=== PATIENT | male | born 1995 | race Caucasian/White ===

== ENCOUNTER 2018-11-24 03:15 | Emergency (ER) | payer OTHER ==
[~2018-11-24] VITALS: Ht 182.9 cm; Wt 95.3 kg
--- OUTSIDE RECORDS SUMMARY | 2018-11-24 03:18 | XMS REPORT | Clinical Summary ---
Author Author [facility] Organization [facility] Address Unknown Phone Unavailable Care Team Providers Care Immigration Consultant Name Role Phone Self, Referral PCP Unavailable Johanny Parker RN Unavailable Unavailable Megha Senabobo Rosado DO Unavailable Source Comments Some departments are not documenting in the electronic medical record. If you do not see the information that you expected, contact Release of Information in the Health Information Management department at [phone] for further assistance in locating additional records.[facility] Allergies Not on File Medications Not on file Active Problems Not on file Social History Date Tobacco Use Types Packs/Day Years Used Never Assessed Sex Assigned at Date Recorded Not on file Industry Job Start Date Occupation Not on file Not on file Not on file Travel End Travel History Travel Start No recent travel history available. Last Filed Vital Signs Time Taken Vital Sign Reading 02/17/2013 4:00 AM CDT Blood Pressure 110/52 02/17/2013 4:00 AM CDT Pulse 57 02/17/2013 1:02 AM CDT Temperature 36.9 C (98.4 F) - Respiratory Rate - 02/17/2013 4:00 AM CDT Oxygen Saturation 98% - Inhaled Oxygen - Concentration 02/17/2013 1:02 AM CDT Weight 74.8 kg (165 lb) 02/17/2013 1:02 AM CDT Height 180.3 cm (5' 11") 02/17/2013 1:02 AM CDT Body Mass Index 23.01 Plan of Treatment Health Maintenance Due Date Last Done Comments PHYSICAL (COMPREHENSIVE) 2003 EXAM HIV SCREENING 2011 DTAP/TDAP VACCINES ( - 2014 Tdap) INFLUENZA VACCINE 04/30/2018 HPV VACCINES Aged Out No longer eligible based on patient's age to complete this topic MENINGOCOCCAL VACCINE Aged Out No longer eligible based (ACWY,Menactra) on patient's age to complete this topic Results Not on filefrom Last 3 Months Advance Directives Patient has advance care planning documents on file. For more information, please contact: [facility] [address] [place] [address]
--- OUTSIDE RECORDS SUMMARY | 2018-11-24 03:18 | XMS REPORT | Clinical Summary ---
Author Author [facility] Organization [facility] Address Unknown Phone Unavailable Care Team Providers Care House Mover Name Role Phone Hector Sheth MD PCP Allergies No Known Allergies Current Medications Prescription Sig. Disp. Refills Start End Date Status Date HYDROcodone-acetaminophen Take 1 tablet by mouth 20 tablet 0 05/05/20 Active (NORCO) 5-325 mg per every 6 (six) hours as 17 tablet needed for pain. Active Problems Not on file Social History Tobacco Use Types Packs/Day Years Used Date Light Tobacco Smoker Smokeless Tobacco: Never Used Alcohol Use Drinks/Week oz/Week Comments Yes Sex Assigned at Date Recorded Not on file Last Filed Vital Signs Vital Sign Reading Time Taken Blood Pressure 125/85 05/05/2017 1:55 AM CDT Pulse 101 05/05/2017 1:55 AM CDT Temperature 37.1 C (98.8 F) 05/05/2017 1:55 AM CDT Respiratory Rate 16 05/05/2017 1:55 AM CDT Oxygen Saturation 99% 05/05/2017 1:55 AM CDT Inhaled Oxygen - - Concentration Weight 86.2 kg (190 lb) 05/05/2017 1:55 AM CDT Height - - Body Mass Index - - Plan of Treatment Health Maintenance Due Date Last Done Comments Td # 1996 Tobacco Cessation 1996 Counseling # HPV Vaccine (1 - Male 2011 3-dose series) Pneumococcal Immunization 2015 19-64 Low/Medium Risk# (1 of 1 - PPSV23) Influenza Vaccine (#1) 2018 MCV4 Vaccine Aged Out No longer eligible based on patient's age to complete this topic Results Not on filefrom Last 3 Months
[2018-11-24] MEDS ORDERED: NS IV 1000 ML 1,000 ML IV SCH (03:22)
[2018-11-24] MEDS ORDERED: ONDANSETRON 4 MG/2 ML (SDV) Z0FRAN IVP ONE (03:30)
[2018-11-24] MEDS ORDERED: KETOROLAC 30 MG/ML VIAL IVP ONE (03:30)
[2018-11-24 03:31] LABS: BASOPHILS % (AUTO) 0 % (0-10); EOSINOPHILS # (AUTO) 0.3 10^3/uL (0.0-0.3); EOSINOPHILS % (AUTO) 2 % (0-10); HEMATOCRIT 42 % (40-54); HEMOGLOBIN 14.6 G/DL (13.3-17.7); LYMPHOCYTES # (AUTO) 2.5 X 10^3 (1.0-4.0); LYMPHOCYTES % (AUTO) 16 % (12-44); MEAN CORPUSCULAR HEMOGLOBIN 30 PG (25-34); MEAN CORPUSCULAR HGB CONC 35 G/DL (32-36); MEAN CORPUSCULAR VOLUME 85 FL (80-99); MEAN PLATELET VOLUME 10.3 FL (7.4-10.4); MONOCYTES # (AUTO) 1.3 X 10^3 (0.0-1.0); MONOCYTES % (AUTO) 8 % (0-12); NEUTROPHILS % (AUTO) 74 % (42-75); PLATELET COUNT 273 10^3/uL (130-400); RED CELL DISTRIBUTION WIDTH 12.8 % (10.0-14.5); WHITE BLOOD COUNT 16.1 10^3/uL (4.3-11.0)
--- NOTE | 2018-11-24 03:32 | ED EENT ---
History of Present Illness General Chief Complaint: Oral/Throat Problems Stated Complaint: FACE SWELLING Source: patient Exam Limitations: no limitations History of Present Illness Date Seen by Provider: Nov 24, 2018 Time Seen by Provider: 03:15 Initial Comments Patient presents to ER by private conveyance with chief complaint that he woke up about 2030 minutes prior to arrival and cannot open his mouth was having quite a bit of pain and swelling under his left jaw. 2 days ago he took a course of azithromycin for chlamydia. He has no known allergies no history of anaphylaxis and no new soaps detergents or foods. He's never had this happen before. He denies having any recent dental cavities or dental pain. No pain in his ears or discharge. No discharge in the mouth or blood. No trauma to the face. He denies any fever or chills but he does have a little nausea. He has not taken anything for it. Allergies and Home Medications Allergies Coded Allergies: No Known Drug Allergies (Unverified , 11/24/18) Home Medications Amoxicillin/Potassium Clav 1 Each Tablet, 1 EACH PO BID Prescribed by: AVE HERNANDEZ on 11/24/18457 Ondansetron 4 Mg Tab.rapdis, 4 MG PO Q6H PRN for NAUSEA/VOMITING Prescribed by: AVE HERNANDEZ on 11/24/18457 Tramadol HCl 50 Mg Tablet, 50 MG PO Q6H PRN for BREAKTHROUGH PAIN Prescribed by: AVE HERNANDEZ on 11/24/188 Patient Home Medication List Home Medication List Reviewed: Yes Review of Systems Review of Systems Constitutional: No chills, No diaphoresis, No fever Eyes: Denies Blindness, Denies Blurred Vision Ears: Denies Dizziness, Denies Pain Nose: denies clots, denies congestion Mouth: see HPI; denies clots, denies loose teeth; pain, swelling; denies bloody discharge, denies clear discharge, denies purulent discharge, denies serosanguinous discharge Throat: denies pain, denies swelling, denies neck stiffness, denies hoarse Respiratory: No cough, No short of breath, No wheezing, No other Cardiovascular: No chest pain, No edema Past Ymjiomf-Zzbkjr-Xfdhga Hx Patient Social History Alcohol Use: Occasionally Uses Recreational Drug Use: No Smoking Status: Never a Smoker Type Used: Electronic/Vapor Recent Foreign Travel: No Contact w/Someone Who Travel: No Physical Exam Vital Signs Vital Signs - First Documented 11/24/18 03:19 Temp 98.1 Pulse 134 Resp 20 B/P (MAP) 171/92 (118) Pulse Ox 95 O2 Delivery Room Air Height, Weight, BMI Height: '" Weight: lbs. oz. kg; BMI Method: General Appearance: WD/WN, no apparent distress Eyes: bilateral eye normal inspection, bilateral eye PERRL, bilateral eye EOMI Ears: bilateral ear auricle normal, bilateral ear canal normal, bilateral ear TM normal Nose: normal inspection, discharge Mouth/Throat: No dental tenderness; other (tongue is normal size and it's difficult to see the interior is not because it hurts when he opens his jaw. He does have a swollen lymph node palpable, tender proximally 3 cm on the left mandibular angle. No fluctuance or pointing to suggest an abscess) Neck: full range of motion, supple Cardiovascular: normal peripheral pulses, regular rate, rhythm, no edema, tachycardia Respiratory: lungs clear, normal breath sounds, no respiratory distress, no accessory muscle use; No stridor, No wheezing Gastrointestinal: non tender, soft Neurologic/Psychiatric: alert, normal mood/affect, oriented x 3 Skin: normal color, warm/dry Progress/Results/Core Measures Results/Orders Lab Results Laboratory Tests Test 11/24/18 03:25 11/24/18 03:39 Range/Units White Blood Count 16.1 H 4.3-11.0 10^3/uL Red Blood Count 4.91 4.35-5.85 10^6/uL Hemoglobin 14.6 13.3-17.7 G/DL Hematocrit 42 40-54 % Mean Corpuscular Volume 85 80-99 FL Mean Corpuscular Hemoglobin 30 25-34 PG Mean Corpuscular Hemoglobin Concent 35 32-36 G/DL Red Cell Distribution Width 12.8 10.0-14.5 % Platelet Count 273 130-400 10^3/uL Mean Platelet Volume 10.3 7.4-10.4 FL Neutrophils (%) (Auto) 74 42-75 % Lymphocytes (%) (Auto) 16 12-44 % Monocytes (%) (Auto) 8 0-12 % Eosinophils (%) (Auto) 2 0-10 % Basophils (%) (Auto) 0 0-10 % Neutrophils # (Auto) 12.0 H 1.8-7.8 X 10^3 Lymphocytes # (Auto) 2.5 1.0-4.0 X 10^3 Monocytes # (Auto) 1.3 H 0.0-1.0 X 10^3 Eosinophils # (Auto) 0.3 0.0-0.3 10^3/uL Basophils # (Auto) 0.0 0.0-0.1 10^3/uL Neutrophils % (Manual) 75 % Lymphocytes % (Manual) 15 % Monocytes % (Manual) 5 % Eosinophils % (Manual) 3 % Band Neutrophils 2 % Blood Morphology Comment NORMAL Sodium Level 138 135-145 MMOL/L Potassium Level 3.9 3.6-5.0 MMOL/L Chloride Level 105 98-107 MMOL/L Carbon Dioxide Level 20 L 21-32 MMOL/L Anion Gap 13 5-14 MMOL/L Blood Urea Nitrogen 13 7-18 MG/DL Creatinine 0.88 0.60-1.30 MG/DL Estimat Glomerular Filtration Rate > 60 BUN/Creatinine Ratio 15 Glucose Level 111 H 70-105 MG/DL Calcium Level 10.5 H 8.5-10.1 MG/DL Corrected Calcium 8.5-10.1 MG/DL Total Bilirubin 0.5 0.1-1.0 MG/DL Aspartate Amino Transf (AST/SGOT) 20 5-34 U/L Alanine Aminotransferase (ALT/SGPT) 17 0-55 U/L Alkaline Phosphatase 62 40-136 U/L C-Reactive Protein High Sensitivity 1.77 H 0.00-0.50 MG/DL Total Protein 8.0 6.4-8.2 GM/DL Albumin 4.6 H 3.2-4.5 GM/DL Lactic Acid Level 1.24 0.50-2.00 MMOL/L My Orders Orders - AVE HERNANDEZ Ct Maxillofacial Wo (11/24/18 03:22) Cbc With Automated Diff (11/24/18 03:22) Comprehensive Metabolic Panel (11/24/18 03:22) Hs C Reactive Protein (11/24/18 03:22) Blood Culture (11/24/18 03:22) Saline Lock/Iv-Start (11/24/18 03:22) Ns Iv 1000 Ml (Sodium Chloride 0.9%) (11/24/18 03:22) Lactic Acid Analyzer (11/24/18 03:22) Ondansetron Injection (Zofran Injectio (11/24/18 03:30) Ketorolac Injection (Toradol Injection) (11/24/18 03:30) Manual Differential (11/24/18 03:25) Ceftriaxone For Iv Use (Rocephin For I (11/24/18 04:30) Ns (Ivpb) (Sodium Chloride 0.9% Ivpb Bag (11/24/18 04:28) Medications Given in ED Current Medications Medications Dose Ordered Sig/Holli Route Start Time Stop Time Status Last Admin Dose Admin Ceftriaxone Sodium 1000 mg/ Sterile Water 10 ml @ 200 mls/hr ONCE ONCE IV 11/24/18 04:30 11/24/18 04:32 DC 11/24/18 04:42 200 MLS/HR Ketorolac Tromethamine 30 mg ONCE ONCE IVP 11/24/18 03:30 11/24/18 03:31 DC 11/24/18 03:38 30 MG Ondansetron HCl 4 mg ONCE ONCE IVP 11/24/18 03:30 11/24/18 03:31 DC 11/24/18 03:37 4 MG Vital Signs/I&O 11/24/18 11/24/18 03:19 04:43 Temp 98.1 98.1 Pulse 134 78 Resp 20 20 B/P (MAP) 171/92 (118) 155/86 Pulse Ox 95 97 O2 Delivery Room Air Room Air Progress Progress Note #1: Time: 03:34 Progress Note Him some Zofran and Toradol check some labs and get a CT maxillofacial looking for possible abscess or tooth involvement. His pain seems to be more related mandible maybe even involving the joint. The ears are nontender on manipulation nor did it show any evidence of erythema in the canal or TM. Patient's tongue is normal size doesn't show any difficulty swallowing or breathing. Sats are okay. After giving Zofran and starting some IV fluids and Toradol his heart rate is already gone down to around 85-90. This does not seem to reflect anaphylaxis. Progress Note #2: Time: 04:29 Progress Note The patient's pain is significantly improved infected was sleeping after his CT scan. We will give him some Rocephin in addition to the Zofran and Toradol. His nausea is gone now. His heart rate is in the 70s. Despite technically meeting sepsis criteria with his initial tachycardia and white count I suspect that it was more related to his pain then tachycardia secondary to sepsis. We'll try and get him some outpatient follow-up, antibiotics, pain and nausea meds. Pending read of CT by radiology. Diagnostic Imaging Diagonstic Imaging: CT (noncontrast) Plain Films/CT/US/NM/MRI: head (maxillofacial) Comments Swelling and inflammatory changes surrounding the parotid gland on the left side. No abscess. No dental abscess. Mild mucosal thickening of the nose and sinuses. Radiology over read: No evidence of acute sinusitis or other acute process within the face. Reviewed: Reviewed [place] Hawk Study, Reviewed by Me Departure Impression Primary Impression: Parotitis, acute Disposition: HOME, SELF-CARE Condition: Improved Departure-Patient Inst. Decision time for Depature: 04:44 Referrals: SAM SILVA MD NO,LOCAL PHYSICIAN (PCP) Primary Care Physician Patient Instructions: Parotitis Add. Discharge Instructions: Liquid diet until you tolerate something more substantial. Use Tylenol 1000 mg every 8 hours as needed in addition to ibuprofen 800 mg every 8 hours as needed. Use warm moist heat applied directly to the skin. 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 If you have nausea take one tablet of Zofran every 6 hours as needed. If you have breakthrough pain that you cannot tolerate then you can use one tablet of the tramadol every 6 hours as needed. Follow-up with primary care or ear nose and throat surgeon next week as necessary. All discharge instructions reviewed with patient and/or family. Voiced understanding. Scripts Ondansetron (Ondansetron Odt) 4 Mg Tab.rapdis 4 MG PO Q6H PRN for NAUSEA/VOMITING, #8 TAB 0 Refills Prov: AVE HERNANDEZ 11/24/18 Amoxicillin/Potassium Clav (Augmentin 875-125 Tablet) 1 Each Tablet 1 EACH PO BID for 7 Days, #14 TAB [address]: [address] HERNANDEZ 11/24/18 Tramadol HCl (Tramadol HCl) 50 Mg Tablet 50 MG PO Q6H PRN for BREAKTHROUGH PAIN for 5 Days, #10 TAB 0 Refills Prov: AVE HERNANDEZ 11/24/18 Work/School Note: Work Release Form Date Seen in the Emergency Department: Nov 24, 2018 Return to Work: Nov 25, 2018 Restrictions: No Restrictions AVE HERNANDEZ Nov 24, 2018 03:32
[2018-11-24 03:49] LABS: ALANINE AMINOTRANSFERASE 17 U/L (0-55); ALBUMIN 4.6 GM/DL (3.2-4.5); ALKALINE PHOSPHATASE 62 U/L (40-136); BILIRUBIN,TOTAL 0.5 MG/DL (0.1-1.0); BUN/CREATININE RATIO 15; CALCIUM 10.5 MG/DL (8.5-10.1); CARBON DIOXIDE 20 MMOL/L (21-32); CHLORIDE 105 MMOL/L (98-107); CREATININE SERUM 0.88 MG/DL (0.60-1.30); GFR ESTIMATED > 60; GLUCOSE 111 MG/DL (70-105); POTASSIUM 3.9 MMOL/L (3.6-5.0); SODIUM 138 MMOL/L (135-145)
[2018-11-24 03:59] LABS: BAND NEUTROPHILS 2 %; EOSINOPHILS % (MANUAL) 3 %; LYMPHOCYTES % (MANUAL) 15 %; MONOCYTES % (MANUAL) 5 %; NEUTROPHILS % (MANUAL) 75 %; RBC MORPH NORMAL
[2018-11-24] MEDS ORDERED: NS (IVPB) 50 ML ONE (04:28)
[2018-11-24] MEDS ORDERED: cefTRIAXone FOR IV USE 1,000 MG in WATER (STERILE) FOR INJECTION 10 ML IV ONE (04:30)
[2018-11-24] MEDS ORDERED: TRAM50TA2 PO (04:58)
[2018-11-24] MEDS ORDERED: AMOX-358 PO ×2 (04:58→05:01)
[2018-11-24] MEDS ORDERED: ONDA4TAB11 PO ×2 (04:58→05:01)
--- NOTE | 2018-11-24 05:38 | Diagnostic Imaging Report ---
Clinical indication: Patient with facial swelling. EXAM: Axial maxillofacial CT scan performed without IV contrast with coronal reformations. COMPARISON: None. FINDINGS: PARANASAL SINUSES: FRONTAL: Unremarkable. ETHMOID: There is mild mucosal thickening. MAXILLARY: There is mild mucosal thickening in both maxillary sinuses. SPHENOID: There is minimal mucosal thickening. OTHER PARANASAL SINUS FINDINGS: None. NASAL SEPTUM: Relatively midline. No significant bony spurs. VISUALIZED TEMPORAL BONE STRUCTURES: Unremarkable. BONY STRUCTURES: Unremarkable. EXTRACRANIAL SOFT TISSUE/ ORBITS: Unremarkable. IMPRESSION: Mild paranasal sinus disease. Otherwise unremarkable maxillofacial CT scan. I agree with [employer] report. Dictated by: Dictated on workstation # [id number]
[2018-11-24 05:45] VITALS: BP 134/76
== END 2018-11-24 05:45 | disposition home or self-care (01) ==
LOC: EDUNIT# 03:15 → ER 03:16
DX: K11.21 Acute sialoadenitis (principal)
CPT/HCPCS: 36415; 70486; 80053; 83605; 85007; 85027; 86141; 87040; 96361; 96365; 96375